=== PATIENT | female | born 1940 | race Caucasian/White ===

== ENCOUNTER 2022-03-06 10:07 | Outpatient (CLI) | payer MEDICARE, OTHER | END 2022-03-06 10:08 | disposition home or self-care (01) | LOC: CSHLAB 10:07 | PROVIDERS: ATTEND Surgery | DX: Z01.818 Encounter for other preprocedural examination (principal); C7A.1 Malignant poorly differentiated neuroendocrine tumors | CPT/HCPCS: 93005; 93010 ==

== ENCOUNTER 2022-03-11 05:35 | Day surgery (SDC) | payer MEDICARE, OTHER ==
[2022-03-07 11:18] VITALS: BMI 20.4
[2022-03-11] MEDS ORDERED: EPINEPHrine 1 MG/ML AMP ONE (06:38)
[2022-03-11] MEDS ORDERED: Bupivacaine PF 0.5% 30 ML VIAL ONE (06:38)
[2022-03-11] MEDS ORDERED: Lidocaine 1% PF 5 ML VIAL ONE (06:56)
[2022-03-11] MEDS ORDERED: CEFAZOLIN 2 GM VIAL ONE (06:56)
[2022-03-11] MEDS ORDERED: PROPOFOL 20 ML ONE (06:56)
[2022-03-11] MEDS ORDERED: Ondansetron PF 4 MG/2 ML Vial ONE (07:27)
[2022-03-11] MEDS ORDERED: HYDROcodone/Acetaminophen 5/325 mg Tablet PO PRN (08:05)
[2022-03-11] MEDS ORDERED: Acetaminophen 325 MG TAB PO PRN (08:05)
== END 2022-03-11 08:30 | disposition home or self-care (01) ==
LOC: CSHSDC 05:35
PROVIDERS: ATTEND Surgery
PROC: 0JH60WZ Insertion of Totally Implantable Vascular Access Device into Chest Subcutaneous Tissue and Fascia, Open Approach (ICD-10-PCS; principal; 2022-03-11)
DX: C7A.1 Malignant poorly differentiated neuroendocrine tumors (principal); E78.00 Pure hypercholesterolemia, unspecified; I10 Essential (primary) hypertension; Z79.899 Other long term (current) drug therapy; E78.5 Hyperlipidemia, unspecified
CPT/HCPCS: 36561; 77001; C1788; J0171; J0690; J1642; J2405; J2704; S0020

== ENCOUNTER 2022-04-28 08:27 | Outpatient (CLI) | payer MEDICARE, OTHER | END 2022-04-28 08:28 | disposition home or self-care (01) | LOC: CSHCT 08:27 | PROVIDERS: ATTEND Internal Medicine | DX: C7A.1 Malignant poorly differentiated neuroendocrine tumors (principal); R59.1 Generalized enlarged lymph nodes; R91.8 Other nonspecific abnormal finding of lung field; K76.9 Liver disease, unspecified; M89.9 Disorder of bone, unspecified | CPT/HCPCS: 71260; 74177; 82565 ==

== ENCOUNTER 2022-06-24 10:21 | Outpatient (CLI) | payer MEDICARE, OTHER ==
[~2022-06-24 10:21] MED LIST: Iopamidol 300 61% 100 ML VIAL FS ONE
== END 2022-06-24 10:22 | disposition home or self-care (01) ==
LOC: CSHCT 10:21
PROVIDERS: ATTEND Internal Medicine
DX: C20 Malignant neoplasm of rectum (principal); C79.89 Secondary malignant neoplasm of other specified sites; R91.8 Other nonspecific abnormal finding of lung field; R59.0 Localized enlarged lymph nodes; J90 Pleural effusion, not elsewhere classified; R16.0 Hepatomegaly, not elsewhere classified
CPT/HCPCS: 71260; 82565